=== PATIENT | male | born 1980 | race Caucasian/White ===

== ENCOUNTER → 2016-11-07 | Outpatient (CLI) | payer OTHER ==
[~2016-11-07] MED LIST: /DULO30CA; NEUR600T; TRAZ50TA
--- NOTE | 2016-11-07 19:19 | REP ---
Clinical: Acute cough. Technique: PA and lateral views. Findings: Diffuse coarsened interstitial markings may reflect bronchitis, chronic reactive airway disease, or viral pneumonia. No focal consolidation, effusion, or pneumothorax. Mediastinum and cardiac silhouette normal. Skeletal structures intact. Impression: Diffusely coarsened markings. Differential diagnosis includes bronchitis, viral pneumonia, and chronic reactive airway disease. No focal consolidation. Signed by Henry Miller MD 11/07/2016 07:09 P
== END ==
LOC: M LRY 18:10
PROVIDERS: ATTEND Nurse Practitioner Family
DX: R05 Cough (principal)

== ENCOUNTER → 2016-11-27 | Outpatient (CLI) | payer OTHER ==
[2016-11-27 17:44] LABS: ALBUMIN 3.5 GM/DL (3.2-5.2); ALBUMIN/GLOBULIN RATIO 1.17 (1.00-1.93); ALKALINE PHOSPHATASE 96 U/L (45-117); ALT/SGPT 50 U/L (12-78); ANION GAP 9 MEQ/L (8-16); AST/SGOT 27 U/L (15-37); BILIRUBIN,TOTAL 0.3 MG/DL (0.2-1.0); BLOOD UREA NITROGEN 10 MG/DL (7-18); CALCIUM LEVEL 8.9 MG/DL (8.5-10.1); CARBON DIOXIDE LEVEL 27 MEQ/L (21-32); CHLORIDE LEVEL 108 MEQ/L (98-107); CREATININE FOR GFR 0.87 MG/DL (0.70-1.30); FERRITIN 291 NG/ML (26-388); GLOMERULAR FILTRATION RATE > 60.0 (>60); GLUCOSE, FASTING 105 MG/DL (70-105); PHOSPHORUS LEVEL 2.9 MG/DL (2.5-4.9); POTASSIUM SERUM 4.1 MEQ/L (3.5-5.1); SODIUM LEVEL 144 MEQ/L (136-145); TOTAL PROTEIN 6.5 GM/DL (6.4-8.2)
[2016-11-27 18:32] LABS: BASO % 0.5 % (0.0-1.0); EOS # 0.1 K/mm3 (0.0-0.50); EOS % 0.8 % (0.0-3.0); LYMPH % 30.9 % (24.0-44.0); MEAN CORPUSCULAR HEMOGLOBIN 30.1 pg (27.0-33.0); MEAN CORPUSCULAR HGB CONC 32.6 g/dl (32.0-36.5); MEAN CORPUSCULAR VOLUME 92.6 fl (80.0-96.0); MONO # 0.6 K/mm3 (0.0-0.8); MONO % 6.5 % (0.0-5.0); NEUTROPHILS # 5.8 K/mm3 (1.8-7.7); NEUTROPHILS % 59.4 % (36.0-66.0); RED CELL DISTRIBUTION WIDTH 12.3 % (11.5-14.5); WHITE BLOOD COUNT 9.7 K/mm3 (4.0-10.0)
== END ==
LOC: M WUC 15:08
PROVIDERS: ATTEND Physician Assistant Medical
DX: R53.83 Other fatigue (principal)

== ENCOUNTER → 2016-12-30 | Outpatient (CLI) | payer OTHER ==
--- NOTE | 2016-12-31 07:32 | REP ---
MRI RIGHT SHOULDER: TECHNIQUE: Axial T2 fat sat, gradient echo, sagittal oblique T2 fat sat, coronal oblique T1, T2 fat sat. There is mild increased signal in the supraspinatus tendon which is ill-defined compatible with tendinopathy/tendinitis. No rotator cuff tear is seen. There are moderate hypertrophic degenerative changes of the acromioclavicular joint with subchondral marrow edema in the distal end of the clavicle and in the acromion. Acromion is curved in shape. Biceps tendon is within the bicipital groove with no tenosynovitis. There is no Hill-Sachs deformity. Deltoid muscle demonstrates no abnormal signal. Biceps labral complex appears intact. No definite labral tear is seen. Bone marrow signal is otherwise unremarkable. There is no joint effusion. There is no paralabral cyst. IMPRESSION: Moderate hypertrophic degenerative changes acromioclavicular joint with subchondral marrow edema on both sides of the joint. Curved shape of the acromion. Mild supraspinatus tendinopathy/tendinitis. No evidence of rotator cuff tear or labral tear. Signed by Alonso Menon MD 12/31/2016 01:53 P
== END ==
LOC: M RAD 09:44
PROVIDERS: ATTEND Physician Assistant Medical
DX: M65.811 Other synovitis and tenosynovitis, right shoulder (principal); M19.011 Primary osteoarthritis, right shoulder

== ENCOUNTER → 2017-04-03 | Outpatient (REF) | payer OTHER | LOC: M LAB REF 14:10 | PROVIDERS: ATTEND Surgery | DX: L72.0 Epidermal cyst (principal) ==

== ENCOUNTER → 2017-05-08 | Outpatient (REF) | payer OTHER ==
[2017-05-08 14:44] LABS: IMMMOTILE SPERM CENTRIFUGED PRESENT (ABSENT); IMMOTILE SPERM ABSENT (ABSENT); MOTILE SPERM ABSENT (ABSENT); MOTILE SPERM CENTRIFUGED ABSENT (ABSENT)
== END ==
LOC: M SMT 14:00
PROVIDERS: ATTEND Urology
DX: Z30.2 Encounter for sterilization (principal)

== ENCOUNTER → 2017-06-26 | Outpatient (CLI) | payer OTHER ==
[2017-06-26 13:33] LABS: BASO % 0.4 % (0.0-1.0); EOS # 0.1 K/mm3 (0.0-0.50); EOS % 0.9 % (0.0-3.0); LARGE UNSTAINED CELL # 0.1 K/mm3 (0.0-0.4); LARGE UNSTAINED CELL % 1.5 % (0.0-4.0); LYMPH # 2.6 K/mm3 (1.5-4.5); LYMPH % 31.3 % (24.0-44.0); MEAN CORPUSCULAR HEMOGLOBIN 31.5 pg (27.0-33.0); MEAN CORPUSCULAR HGB CONC 33.8 g/dl (32.0-36.5); MEAN CORPUSCULAR VOLUME 93.1 fl (80.0-96.0); MONO # 0.6 K/mm3 (0.0-0.8); MONO % 7.5 % (0.0-5.0); NEUTROPHILS # 4.6 K/mm3 (1.8-7.7); NEUTROPHILS % 58.4 % (36.0-66.0); PLATELET COUNT, AUTOMATED 325 k/mm3 (150-450); RED CELL DISTRIBUTION WIDTH 12.8 % (11.5-14.5); WHITE BLOOD COUNT 7.9 K/mm3 (4.0-10.0)
[2017-06-26 13:52] LABS: ALBUMIN 3.6 GM/DL (3.2-5.2); ALBUMIN/GLOBULIN RATIO 1.16 (1.00-1.93); ALKALINE PHOSPHATASE 96 U/L (45-117); ALT/SGPT 48 U/L (12-78); ANION GAP 7 MEQ/L (8-16); AST/SGOT 24 U/L (15-37); BILIRUBIN,TOTAL 0.6 MG/DL (0.2-1.0); BLOOD UREA NITROGEN 13 MG/DL (7-18); CALCIUM LEVEL 9.2 MG/DL (8.5-10.1); CARBON DIOXIDE LEVEL 29 MEQ/L (21-32); CHLORIDE LEVEL 108 MEQ/L (98-107); CHOLESTEROL LEVEL 174 MG/DL (<200); CREATININE FOR GFR 0.93 MG/DL (0.70-1.30); GLOMERULAR FILTRATION RATE > 60.0 (>60); GLUCOSE, FASTING 96 MG/DL (70-105); POTASSIUM SERUM 4.7 MEQ/L (3.5-5.1); SODIUM LEVEL 144 MEQ/L (136-145); TOTAL PROTEIN 6.7 GM/DL (6.4-8.2); TRIGLYCERIDES LEVEL 137 MG/DL (<150)
== END ==
LOC: M WUC 09:59
PROVIDERS: ATTEND Physician Assistant Medical
DX: E78.2 Mixed hyperlipidemia (principal); E55.9 Vitamin D deficiency, unspecified

== ENCOUNTER → 2017-07-19 | Outpatient (CLI) | payer OTHER ==
[2017-07-19 15:12] LABS: ALBUMIN 3.3 GM/DL (3.2-5.2); ALBUMIN/GLOBULIN RATIO 1.06 (1.00-1.93); ALKALINE PHOSPHATASE 91 U/L (45-117); ALT/SGPT 37 U/L (12-78); ANION GAP 5 MEQ/L (8-16); AST/SGOT 19 U/L (15-37); BILIRUBIN,TOTAL 0.3 MG/DL (0.2-1.0); BLOOD UREA NITROGEN 13 MG/DL (7-18); CALCIUM LEVEL 8.4 MG/DL (8.5-10.1); CARBON DIOXIDE LEVEL 30 MEQ/L (21-32); CHLORIDE LEVEL 106 MEQ/L (98-107); CREATININE FOR GFR 1.08 MG/DL (0.70-1.30); GLOMERULAR FILTRATION RATE > 60.0 (>60); GLUCOSE, FASTING 181 MG/DL (70-105); POTASSIUM SERUM 3.9 MEQ/L (3.5-5.1); SODIUM LEVEL 141 MEQ/L (136-145); TOTAL PROTEIN 6.4 GM/DL (6.4-8.2)
[2017-07-19 15:20] LABS: VITAMIN B12 LEVEL 511 PG/ML
[2017-07-19 15:21] LABS: FOLATE 11.1 NG/ML
[2017-07-19 16:15] LABS: BASO % 0.3 % (0.0-1.0); EOS % 0.7 % (0.0-3.0); LARGE UNSTAINED CELL # 0.1 K/mm3 (0.0-0.4); LARGE UNSTAINED CELL % 1.1 % (0.0-4.0); LYMPH # 1.2 K/mm3 (1.5-4.5); LYMPH % 15.6 % (24.0-44.0); MEAN CORPUSCULAR HEMOGLOBIN 31.8 pg (27.0-33.0); MEAN CORPUSCULAR HGB CONC 33.6 g/dl (32.0-36.5); MEAN CORPUSCULAR VOLUME 94.7 fl (80.0-96.0); MONO # 0.4 K/mm3 (0.0-0.8); MONO % 5.6 % (0.0-5.0); NEUTROPHILS # 5.6 K/mm3 (1.8-7.7); NEUTROPHILS % 76.7 % (36.0-66.0); PLATELET COUNT, AUTOMATED 339 k/mm3 (150-450); RED CELL DISTRIBUTION WIDTH 12.5 % (11.5-14.5); WHITE BLOOD COUNT 7.3 K/mm3 (4.0-10.0)
[2017-07-19 17:08] LABS: ERYTHROCYTE SEDIMENTATION RATE 15 mm/hr (0-15)
[2017-07-21 00:06] LABS: Lyme Disease IgG/IgM Antibodie <0.91 ISR (0.00-0.90); Lyme Disease IgM Ab Quantitati <0.80 index (0.00-0.79)
[2017-07-24 12:30] LABS: ALBUMIN 3.55 GM/DL (3.29-5.55); ALBUMIN % 55.4 % (55.8-66.1); GAMMA GLOBULIN % 14.6 % (11.1-18.8)
[2017-07-25 00:06] LABS: SJOGREN'S ANTI SS-A <0.2 AI (0.0-0.9); SJOGREN'S ANTI SS-B <0.2 AI (0.0-0.9); VITAMIN E LEVEL 4.9 mg/L (5.3-17.5)
== END ==
LOC: M WUC 09:25
PROVIDERS: ATTEND Psychiatry & Neurology Neurology
DX: G62.9 Polyneuropathy, unspecified (principal)

== ENCOUNTER 2019-06-23 09:40 | Emergency (ER) | payer OTHER ==
[~2019-06-23] VITALS: Ht 182.9 cm; Wt 109.1 kg
[~2019-06-23 09:40] MED LIST changes: -/DULO30CA; +CYMB1CAP5
[2019-06-23] MEDS ORDERED: DOXY100C37 PO (10:29)
[2019-06-23] MEDS ORDERED: ADACEL/BOOSTRIX VACCINE (DIPHTH/PERTUSS/ACELL/TETANUS)0.5ML SYR (90715) IM ONE (10:30)
[2019-06-23 11:10] VITALS: BP 137/84
== END 2019-06-23 11:27 | disposition home or self-care (01) ==
LOC: M ED 09:40
DX: S61.012A Laceration without foreign body of left thumb without damage to nail, initial encounter (principal); W26.9XXA Contact with unspecified sharp object(s), initial encounter; Y92.89 Other specified places as the place of occurrence of the external cause; Y93.89 Activity, other specified; Y99.0 Civilian activity done for income or pay; Z72.0 Tobacco use; Z88.5 Allergy status to narcotic agent

== ENCOUNTER → 2020-01-12 | Outpatient (CLI) | payer OTHER ==
[~2020-01-12] MED LIST changes: +DOXY100C37 PO
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
== END ==
LOC: M PAIN 10:00
PROVIDERS: ATTEND Family Medicine
DX: M50.10 Cervical disc disorder with radiculopathy, unspecified cervical region (principal); F17.210 Nicotine dependence, cigarettes, uncomplicated; Z88.5 Allergy status to narcotic agent; G47.30 Sleep apnea, unspecified; Z79.899 Other long term (current) drug therapy

== ENCOUNTER → 2020-01-15 | Outpatient (CLI) | payer OTHER, SELFPAY ==
--- NOTE | 2020-01-15 18:55 | REP ---
RIGHT ANKLE, FOUR VIEWS: There is no evidence of an acute fracture, dislocation or intrinsic bone disease. IMPRESSION: No fracture or dislocation. Electronically Signed by Alonso Menon MD 01/15/2020 06:59 P
== END ==
LOC: M LRY 17:42
PROVIDERS: ATTEND Physician Assistant
DX: S99.911A Unspecified injury of right ankle, initial encounter (principal); X58.XXXA Exposure to other specified factors, initial encounter; Y92.89 Other specified places as the place of occurrence of the external cause; Y93.9 Activity, unspecified; Y99.9 Unspecified external cause status

== ENCOUNTER 2021-07-02 21:27 | Inpatient (IN) | payer OTHER ==
[~2021-07-02] VITALS: Ht 182.9 cm; Wt 124.7 kg
[~2021-07-02 21:27] MED LIST changes: -DOXY100C37 PO; +DOXY1CAP62 PO
[2021-07-03 00:11] LABS: BASO % 0.3 % (0.0-1.0); EOS # 0.1 10^3/uL (0.0-0.5); EOS % 0.8 % (0.0-3.0); HEMATOCRIT 41.8 % (42.0-52.0); HEMOGLOBIN 13.5 g/dl (13.5-17.5); LYMPH # 2.3 10^3/uL (1.5-5.0); LYMPH % 19.6 % (24.0-44.0); MEAN CORPUSCULAR HGB CONC 32.3 g/dl (32.0-36.5); MEAN CORPUSCULAR VOLUME 96.1 fl (80.0-96.0); MONO # 1.5 10^3/uL (0.0-0.8); MONO % 12.5 % (2.0-8.0); NEUTROPHILS # 7.6 10^3/uL (1.5-8.5); NEUTROPHILS % 65.8 % (36.0-66.0); PLATELET COUNT, AUTOMATED 309 10^3/uL (150-450); RED BLOOD COUNT 4.35 10^6/uL (4.30-6.10)
[2021-07-03 00:12] LABS: ALBUMIN 3.2 GM/DL (3.2-5.2); ALT/SGPT 45 U/L (12-78); BILIRUBIN,DIRECT 0.1 MG/DL (0.0-0.2); BILIRUBIN,TOTAL 0.5 MG/DL (0.2-1.0); BLOOD UREA NITROGEN 13 MG/DL (7-18); CALCIUM LEVEL 8.6 MG/DL (8.5-10.1); CARBON DIOXIDE LEVEL 29 MEQ/L (21-32); CHLORIDE LEVEL 109 MEQ/L (98-107); CREATININE FOR GFR 0.96 MG/DL (0.70-1.30); GLOMERULAR FILTRATION RATE > 60.0 (>60); GLUCOSE, FASTING 119 MG/DL (70-100); LIPASE 81 U/L (73-393); SODIUM LEVEL 142 MEQ/L (136-145); TOTAL PROTEIN 6.7 GM/DL (6.4-8.2)
[2021-07-03 00:15] LABS: WHITE BLOOD COUNT 11.6 10^3/uL (4.0-10.0)
[2021-07-03] MEDS ORDERED: KETOROLAC 30 MG/ML 1ML VIAL IV ONE (00:15)
[2021-07-03] MEDS ORDERED: ONDANSETRON 4MG/2ML VIAL IV ONE (00:15)
[2021-07-03] MEDS ORDERED: ISOVUE-370 76% 100ML VIAL As Ordered ONE (00:19)
[2021-07-03] MEDS ORDERED: NS 1,000 ML IV ONE (00:20)
--- NOTE | 2021-07-03 01:40 | REPVR ---
PROCEDURE INFORMATION: Exam: CT Abdomen And Pelvis With Contrast Exam date and time: 07/03/2021 12:55 AM Age: 41 years old Clinical indication: Other: Llq pain TECHNIQUE: Imaging protocol: Computed tomography of the abdomen and pelvis with contrast. Radiation optimization: All CT scans at this facility use at least one of these dose optimization techniques: automated exposure control; mA and/or kV adjustment per patient size (includes targeted exams where dose is matched to clinical indication); or iterative reconstruction. Contrast material: ISOVUE 370; Contrast volume: 100 ml; Contrast route: INTRAVENOUS (IV); COMPARISON: No relevant prior studies available. FINDINGS: LUNG BASES: No infiltrate or effusion. VASCULAR: Major vasculature is within normal limits. GI: No hiatal hernia. A few distal periesophageal lymph nodes are noted up to 9 mm in diameter of uncertain significance. Clinical follow-up with gastroenterology is advised. No periesophageal inflammatory changes are seen. The stomach is slightly distended with ingested material and gas. The stomach is not sufficiently distended to evaluate wall thickening or for complete diagnostic evaluation. There are multiple gastrohepatic ligament lymph nodes which measure up to 10 mm in short axis. The significance of this is uncertain. Comparison with prior studies if available or follow up would be helpful. No appearance of bowel obstruction. Slightly prominent mesenteric lymph nodes are noted but not obviously pathologic by size criteria. Scattered fecal material and gas within portions of the colon and rectum. The appendix does not appear inflamed. There is focal moderately severe pericolonic inflammatory stranding at the distal descending colon in the left lower quadrant with associated colonic wall thickening, adjacent fascial thickening and fluid. There is a background of diverticulosis and a few indistinct thick-walled appearing posterior diverticula are noted at the site of inflammation, findings consistent with acute diverticulitis. There are a few tiny bubbles of gas which appear to be extraluminal adjacent to the inflamed diverticulum suggesting a micro perforation. No free air is seen otherwise throughout the peritoneal cavity. No drainable abscess collection is seen. Follow-up with colonoscopy or fluoroscopic evaluation is advised, to exclude any possibility of an underlying colonic lesion, once acute inflammatory change subsides. HEPATOBILIARY, PANCREAS, SPLEEN: Hepatic length is 18.9 cm. Attenuation of the liver is consistent with severe steatosis. Partially contracted gallbladder. No calcified gallstones. Thickened appearance of the gallbladder wall may be artifactual. No pancreatic inflammation. Spleen not enlarged. ADRENALS, KIDNEYS, BLADDER, RETROPERITONEAL: Adrenals within normal limits. No hydronephrosis. Symmetric renal enhancement. No perivesical stranding. No bladder wall thickening. Slight heterogeneity of the prostate. Prostate calcifications are noted. MUSCULOSKELETAL: Fat containing inguinal hernias, right larger than left. Degenerative disc disease of the lumbar spine. IMPRESSION: Findings are consistent with acute diverticulitis. There is a suspected micro perforation. Findings and recommendations discussed above in detail. Other nonemergent findings discussed above. Electronically signed by: Dwain Rivera On 07/03/2021 01:40:16 AM
[2021-07-03 02:53] LABS: RSV AMPLIFICATION NEGATIVE (NEGATIVE)
[2021-07-03] MEDS ORDERED: metroNIDAZOLE 500 MG in IV 1 EA IV ONE (03:20)
[2021-07-03] MEDS ORDERED: CIPROFLOXACIN 400 MG in IV 1 EA IV ONE (03:20)
[2021-07-03] MEDS ORDERED: HOME MED LIST COMPLETE! XX SCH (03:50)
[2021-07-03] MEDS ORDERED: ACETAMINOPHEN TAB 650MG DOSE (2X325MG) PO PRN (04:15)
--- NOTE | 2021-07-03 04:37 | HPEPDOC ---
General Date of Admission July 03, 2021 Date of Service: Jul 03, 2021 Chief Complaint The patient is a 41-year-old male admitted with a reason for visit of Diverticulitis. History of Present Illness Mr. Gama is a 41-year-old male who is here with abdominal pain. About 4 days ago during work, he started to have abdominal pain. He tells me that his work is very physical. His abdominal pain gradually got worse and worse. It is a sharp pain in the left lower quadrant. Food does not make it better or worse. He notes that it is tender when he puts pressure on his abdomen. Patient never had a colonoscopy. Denies any recent trauma, travel, or sick contacts. He started to have fever and chills at home. He came into the ED for evaluation. While here, he has been afebrile, but he has leukocytosis. Physical exam is positive for tenderness in the left lower quadrant. Otherwise, he appears very comfortable and not in distress. CT of the abdomen pelvis with IV contrast only demonstrates acute diverticulitis and suspected microperforation. Patient will be admitted for acute diverticulitis Home Medications No Active Prescriptions or Reported Meds Allergies Coded Allergies: morphine (Verified Allergy, Severe, ANYPHYLACTIC, 06/23/19) Past Medical History Medical History 1. Right shoulder issues Surgical History 1. Right inguinal hernia repair 2. Strangulated hernia 9 years ago 3. Vasectomy Family History Father: History of cancer and sleep apnea Mother: Does not know her medical history Social History * Smoker: current smoker Alcohol: occationally Drugs: denies A-FIB/CHADSVASC A-FIB History Current/History of A-Fib/PAF?: No Review of Systems Constitutional: Reports: Chills, Fever Eyes: Denies: Vision change ENT: Denies: Sore Throat Skin: Denies: Rash Pulmonary: Reports: Cough (Dry); Denies: Dyspnea Cardiovascular: Denies: Chest Pain Gastrointestinal: Reports: Abdominal Pain (Left lower quadrant); Denies: Diarrhea, Constipation Genitourinary: Denies: Dysuria Hematologic: Denies: Bruising Neurological: Denies: Numbness Psych: Denies: Anxiety, Depression Physical Examination General Exam: Positive: Alert, Cooperative Eye Exam: Positive: EOMI; Negative: Sclera icteric ENT Exam: Positive: Atraumatic Neck Exam: Positive: Supple Chest Exam: Positive: Clear to auscultation; Negative: Rales, Rhonchi, Wheezing Heart Exam: Positive: Rate Normal, Regular Rhythm Abdomen Exam: Positive: Normal bowel sounds, Soft, Tenderness Extremity Exam: Negative: Edema Neuro Exam: Positive: Normal Speech, Cranial Nerves 3-12 NL Psych Exam: Positive: Mental status NL, Mood NL Vital Signs Vital Signs Date Time Temp Pulse Resp B/P (MAP) Pulse Ox O2 Delivery O2 Flow Rate FiO2 07/03/21 03:45 84 16 115/62 (79) 96 Room Air 07/02/21 21:29 98.3 Laboratory Data Labs 24H Laboratory Tests 2 07/02/21 23:31: Immature Granulocyte % (Auto) 1.0, Neutrophils (%) (Auto) 65.8, Lymphocytes (%) (Auto) 19.6L, Monocytes (%) (Auto) 12.5H, Eosinophils (%) (Auto) 0.8, Basophils (%) (Auto) 0.3, Neutrophils # (Auto) 7.6, Lymphocytes # (Auto) 2.3, Monocytes # (Auto) 1.5H, Eosinophils # (Auto) 0.1, Basophils # (Auto) 0.0, Nucleated Red Blood Cells % (auto) 0.0, Anion Gap 4L, Glomerular Filtration Rate > 60.0, Calcium Level 8.6, Total Bilirubin 0.5, Direct Bilirubin 0.1, Aspartate Amino Transf (AST/SGOT) 18, Alanine Aminotransferase (ALT/SGPT) 45, Alkaline Phosphatase 91, Total Protein 6.7, Albumin 3.2, Albumin/Globulin Ratio 0.9, Lipase 81 07/02/21 23:32: Lactic Acid Level 1.1 07/03/21 02:00: Coronavirus (COVID-19)(PCR) NEGATIVE, Influenza Type A (RT-PCR) NEGATIVE, Infl uenza Type B (RT-PCR) NEGATIVE, Respiratory Syncytial Virus (PCR) NEGATIVE CBC/BMP Laboratory Tests 07/02/21 23:31 Assessment/Plan Mr. Gama is a 41-year-old male who is here with abdominal pain secondary to acute diverticulitis. We will start patient on IV antibiotics and put patient on a low residue diet. Patient may benefit from outpatient colonoscopy once inflammation resolves. Interestingly, patient tells me that he has family members that also have diverticulitis. Plan / VTE VTE Prophylaxis Ordered?: Yes Plan Plan 1. Acute diverticulitis Seen on CT of the abdomen pelvis IV metronidazole and IV ciprofloxacin day 0 Low residue diet Of note, CT has suspicion for microperforation, but patient appears very comfortable. Monitor at this time. 2. Tobacco use disorder Patient is a current smoker Offered nicotine patch, patient declined 3. Obesity and steatosis BMI 34.4 CT abdomen pelvis demonstrates steatosis, but AST and ALT are within normal limits Patient may benefit from diet and exercise 4. DVT prophylaxis SCDs and tedJJ Jimenez. DO Jul 03, 2021 04:37
[2021-07-03 05:26] VITALS: BP 132/83
[2021-07-03 06:31] LABS: HEMATOCRIT 39.7 % (42.0-52.0); HEMOGLOBIN 12.7 g/dl (13.5-17.5); MEAN CORPUSCULAR HEMOGLOBIN 30.9 pg (27.0-33.0); MEAN CORPUSCULAR VOLUME 96.6 fl (80.0-96.0); PLATELET COUNT, AUTOMATED 277 10^3/uL (150-450); RED BLOOD COUNT 4.11 10^6/uL (4.30-6.10); WHITE BLOOD COUNT 9.9 10^3/uL (4.0-10.0)
[2021-07-03 06:41] LABS: INR 1.03; PROTHROMBIN TIME 13.9 SECONDS (12.7-14.5)
[2021-07-03 06:42] LABS: PARTIAL THROMBOPLASTIN TIME 40.2 SECONDS (25.9-37.0)
[2021-07-03 06:51] LABS: BLOOD UREA NITROGEN 14 MG/DL (7-18); CALCIUM LEVEL 8.3 MG/DL (8.5-10.1); CARBON DIOXIDE LEVEL 25 MEQ/L (21-32); CHLORIDE LEVEL 111 MEQ/L (98-107); GLOMERULAR FILTRATION RATE > 60.0 (>60); GLUCOSE, FASTING 107 MG/DL (70-100); SODIUM LEVEL 141 MEQ/L (136-145)
--- NOTE | 2021-07-03 09:30 | IPNPDOC ---
Subjective Date Seen The patient was seen on 07/03/21. Subjective Chief Complaint/HPI Patient was seen and examined at bedside this morning. He is presented to emergency department with complaints of abdominal pain, nausea, and vomiting. 3 to 4 days prior to admission he was also experiencing fever and chills. CT scan noted evidence for acute diverticulitis. Upon entering the room, he was laying on his but left lateral side and reported lying on his back aggravates his left lower quadrant pain. He did reports mild to moderate improvement in the pain since hospitalization. He has been tolerating his diet without aggravating the pain, nausea, and vomiting. He Other systems 10 point review of system was negative except for what is noted in the HPI Objective Physical Examination Other physical findings General: Lying in bed, no acute distress Head/Neck/Throat: Trachea midline, mucous membranes moist Eyes: Sclera anicteric, no erythema or discharge appreciated bilaterally Thorax: Normal respiratory effort on room air, lungs clear to auscultation bilaterally, no wheezes/rales/rhonchi Cardiovascular: Normal rate, regular rhythm, normal S1, S2; no S3, S4, rubs/gallops/murmurs Abdomen: bowel sounds are present, soft, nondistended, tenderness reported with palpation in the left lower quadrant, no rebound tenderness Genitourinary: No CVA tenderness, no Munoz in place Musculoskeletal: Moving all extremities, no edema Skin: Warm, dry Neurologic: AAOx3, speech fluent and goal-directed, no focal deficits, grossly intact Assessment /Plan Assessment #Acute diverticulitis -Continue with ciprofloxacin and Flagyl. -We will hold off on advancing diet further today -We will get in touch with surgery for microperforations that were noted, but this is likely just his diverticulum -Did not have a colonoscopy in the past. Will need a colonoscopy in 6 to 8 weeks, he was made aware of this. #Tobacco use -Refused nicotine patch. #steatosis Noted on CT scan of the abdomen. AST/ALT within normal limits. He will need lifestyle modifications including diet and exercise. He will need to be followed up with his primary care physician for appropriate monitoring. #DVT prophylax -Enoxaparin Plan/VTE VTE Prophylaxis Ordered?: Yes VS, I&O, 24H, Fishbone Vital Signs/I&O Vital Signs Date Time Temp Pulse Resp B/P (MAP) Pulse Ox O2 Delivery O2 Flow Rate FiO2 9/5/21 05:26 97.4 85 16 132/83 (99) 98 Room Air I&O- Last 24 Hours up to 6 AM 07/03/21 06:00 Intake Total 0 ml Balance 0 ml Laboratory Data 24H LABS Laboratory Tests 2 07/02/21 23:31: Immature Granulocyte % (Auto) 1.0, Neutrophils (%) (Auto) 65.8, Lymphocytes (%) (Auto) 19.6L, Monocytes (%) (Auto) 12.5H, Eosinophils (%) (Auto) 0.8, Basophils (%) (Auto) 0.3, Neutrophils # (Auto) 7.6, Lymphocytes # (Auto) 2.3, Monocytes # (Auto) 1.5H, Eosinophils # (Auto) 0.1, Basophils # (Auto) 0.0, Nucleated Red Blood Cells % (auto) 0.0, Anion Gap 4L, Glomerular Filtration Rate > 60.0, Calcium Level 8.6, Total Bilirubin 0.5, Direct Bilirubin 0.1, Aspartate Amino Transf (AST/SGOT) 18, Alanine Aminotransferase (ALT/SGPT) 45, Alkaline Phosphatase 91, Total Protein 6.7, Albumin 3.2, Albumin/Globulin Ratio 0.9, Lipase 81 07/02/21 23:32: Lactic Acid Level 1.1 07/03/21 02:00: Coronavirus (COVID-19)(PCR) NEGATIVE, Influenza Type A (RT-PCR) NEGATIVE, Influenza Type B (RT-PCR) NEGATIVE, Respiratory Syncytial Virus (PCR) NEGATIVE 07/03/21 05:52: Nucleated Red Blood Cells % (auto) 0.0, Anion Gap 5L, Glomerular Filtration Rate > 60.0, Calcium Level 8.3L, Prothrombin Time 13.9, Prothromb Time International Ratio 1.03, Activated Partial Thromboplast Time 40.2H, C-Reactive Protein, Quantitative 11.70H CBC/BMP Laboratory Tests 07/02/21 23:31 07/03/21 05:52 RADHA NICOLAS M.D. Jul 03, 2021 09:30
[2021-07-03] MEDS: ENOXAPARIN 40MG/0.4ML SYRINGE (J1650 PER 10MG) SC SCH (10:47)
[2021-07-03] MEDS ORDERED: KETOROLAC 30 MG/ML 1ML VIAL IV PRN (13:30)
[2021-07-03] MEDS: metroNIDAZOLE 500 MG in IV 1 EA IV SCH ×2 (13:52→21:25)
[2021-07-03 14:00] VITALS: BP 105/69
[2021-07-03] MEDS: CIPROFLOXACIN 400 MG in IV 1 EA IV SCH (15:07)
[2021-07-03 22:00] VITALS: BP 128/57
[2021-07-04] MEDS: CIPROFLOXACIN 400 MG in IV 1 EA IV SCH (04:02)
[2021-07-04] MEDS: metroNIDAZOLE 500 MG in IV 1 EA IV SCH (05:20)
[2021-07-04 06:00] VITALS: BP 131/62
[2021-07-04 06:38] LABS: HEMATOCRIT 40.8 % (42.0-52.0); MEAN CORPUSCULAR HEMOGLOBIN 30.9 pg (27.0-33.0); MEAN CORPUSCULAR HGB CONC 31.9 g/dl (32.0-36.5); MEAN CORPUSCULAR VOLUME 96.9 fl (80.0-96.0); PLATELET COUNT, AUTOMATED 292 10^3/uL (150-450); RED BLOOD COUNT 4.21 10^6/uL (4.30-6.10); WHITE BLOOD COUNT 7.5 10^3/uL (4.0-10.0)
[2021-07-04 07:08] LABS: BLOOD UREA NITROGEN 13 MG/DL (7-18); CALCIUM LEVEL 8.2 MG/DL (8.5-10.1); CARBON DIOXIDE LEVEL 26 MEQ/L (21-32); CHLORIDE LEVEL 112 MEQ/L (98-107); CREATININE FOR GFR 0.81 MG/DL (0.70-1.30); GLOMERULAR FILTRATION RATE > 60.0 (>60); GLUCOSE, FASTING 113 MG/DL (70-100); PHOSPHORUS LEVEL 2.5 MG/DL (2.5-4.9); POTASSIUM SERUM 4.3 MEQ/L (3.5-5.1); SODIUM LEVEL 142 MEQ/L (136-145)
[2021-07-04] MEDS: ENOXAPARIN 40MG/0.4ML SYRINGE (J1650 PER 10MG) SC SCH (08:41)
[2021-07-04] MEDS ORDERED: CIPR500T39 PO (09:42)
[2021-07-04] MEDS ORDERED: FLAG500T PO (09:42)
--- NOTE | 2021-07-04 09:54 | DS.PDOC ---
Discharge Summary General Date of Admission Jul 02, 2021 at 21:28 Date of Discharge 07/04/21 Discharge Summary DISCHARGE DIAGNOSES: 1. Diverticulitis 2. Severe steatosis 3. Paraesophageal and multiple gastrohepatic ligament lymph nodes COMPLICATIONS/CHIEF COMPLAINT: Diverticulitis. HOSPITAL COURSE: 41-year-old male with a past medical history of strangulated hernia presented to the emergency department with abdominal pain. A CT scan of the abdomen and pelvis done in the emergency department noted for findings are consistent with acute diverticulitis and possible microperforation He was started on IV antibiotics including ciprofloxacin and Flagyl with significant improvement in his pain. At the time of discharge she was tolerating diet and there was improvement in his pain. He was evaluated by the surgical team in regards to the suspected microperforation, no acute intervention was required at the time. He is to follow-up with a mortgage loan counselor in 10 to 14 days and have a colonoscopy in 6 to 8 weeks. It should be noted that there was paraesophageal as well as multiple gastrohepa tic ligament lymph nodes that were appreciated on CT scan. He needs to follow- up with a mortgage loan counselor for further evaluation. He was also noted to have severe steatosis. He needs to follow-up with his primary care physician for ongoing monitoring and is encouraged to have lifestyle modification changes including weight loss and change in diet. Patient is aware of these findings. He was encouraged to obtain a copy of his CT scan findings for his reference Patient was also asked to follow-up with primary care physician for further evaluation of his anemia DISCHARGE MEDICATIONS: Please see below. ALLERGIES: Please see below. PHYSICAL EXAMINATION ON DISCHARGE: General: Lying in bed, no acute distress Head/Neck/Throat: Trachea midline, mucous membranes moist Eyes: Sclera anicteric, PERRLA Thorax: Normal respiratory effort on room air, lungs clear to auscultation bilaterally, no wheezes/rales/rhonchi Cardiovascular: Normal rate, regular rhythm, normal S1, S2; no S3, S4, rubs/ gallops/murmurs Abdomen: Bowel sounds present, soft/nontender/nondistended Genitourinary: No CVA tenderness, no Munoz in place Musculoskeletal: Moving all extremities, no edema Skin: Warm, dry Neurologic: AAOx3, speech fluent and goal-directed, no focal deficits, grossly intact LABORATORY DATA: Please see below. IMAGING: CT scan Abdomen pelvis with contrast FINDINGS: LUNG BASES: No infiltrate or effusion. VASCULAR: Major vasculature is within normal limits. GI: No hiatal hernia. A few distal periesophageal lymph nodes are noted up to 9 mm in diameter of uncertain significance. Clinical follow-up with gastroenterology is advised. No periesophageal inflammatory changes are seen. The stomach is slightly distended with ingested material and gas. The stomach is not sufficiently distended to evaluate wall thickening or for complete diagnostic evaluation. There are multiple gastrohepatic ligament lymph nodes which measure up to 10 mm in short axis. The significance of this is uncertain. Comparison with prior studies if available or follow up would be helpful. No appearance of bowel obstruction. Slightly prominent mesenteric lymph nodes are noted but not obviously pathologic by size criteria. Scattered fecal material and gas within portions of the colon and rectum. The appendix does not appear inflamed. There is focal moderately severe pericolonic inflammatory stranding at the distal descending colon in the left lower quadrant with associated colonic wall thickening, adjacent fascial thickening and fluid. There is a background of diverticulosis and a few indistinct thick-walled appearing posterior diverticula are noted at the site of inflammation, findings consistent with acute diverticulitis. There are a few tiny bubbles of gas which appear to be extraluminal adjacent to the inflamed diverticulum suggesting a micro perforation. No free air is seen otherwise throughout the peritoneal cavity. No drainable abscess collection is seen. Follow-up with colonoscopy or fluoroscopic evaluation is advised, to exclude any possibility of an underlying colonic lesion, once acute inflammatory change subsides. HEPATOBILIARY, PANCREAS, SPLEEN: Hepatic length is 18.9 cm. Attenuation of the liver is consistent with severe steatosis. Partially contracted gallbladder. No calcified gallstones. Thickened appearance of the gallbladder wall may be artifactual. No pancreatic inflammation. Spleen not enlarged. ADRENALS, KIDNEYS, BLADDER, RETROPERITONEAL: Adrenals within normal limits. No hydronephrosis. Symmetric renal enhancement. No perivesical stranding. No bladder wall thickening. Slight heterogeneity of the prostate. Prostate calcifications are noted. MUSCULOSKELETAL: Fat containing inguinal hernias, right larger than left. Degenerative disc disease of the lumbar spine. DISCHARGE CONDITION: [Stable]. TIME SPENT ON DISCHARGE: 32 minutes. Vital Signs/I&Os Vital Signs Date Time Temp Pulse Resp B/P (MAP) Pulse Ox O2 Delivery O2 Flow Rate FiO2 07/04/21 06:00 97.6 82 18 131/62 (85) 96 Room Air I&O- Last 24 Hours up to 6 AM 07/04/21 06:00 Intake Total 2980 ml Output Total 800 ml Balance 2180 ml Laboratory Data Labs 24H Laboratory Tests 2 07/04/21 06:12: Nucleated Red Blood Cells % (auto) 0.0, Anion Gap 4L, Glomerular Filtration Rate > 60.0, Calcium Level 8.2L, Phosphorus Level 2.5, Magnesium Level 2.0 CBC/BMP Laboratory Tests 07/04/21 06:12 Discharge Medications Scheduled Ciprofloxacin HCl (Ciprofloxacin HCl) 500 Mg Tablet, 500 MG PO BID Metronidazole (Flagyl) 500 Mg Tablet, 500 MG PO Q8H FOR 10 DAYS Allergies Coded Allergies: morphine (Verified Allergy, Severe, ANYPHYLACTIC, 06/23/19) RADHA NICOLAS M.D. Jul 04, 2021 09:45
== END 2021-07-04 11:02 | disposition home or self-care (01) | DRG 244 ==
LOC: M ED 21:27 → M ED INP 21:28 → M MSPAV 07-03 05:26
PROVIDERS: ADMIT Internal Medicine; ATTEND Internal Medicine
DX: K57.92 Diverticulitis of intestine, part unspecified, without perforation or abscess without bleeding (principal); E88.89 Other specified metabolic disorders; I89.0 Lymphedema, not elsewhere classified; Z88.5 Allergy status to narcotic agent; F17.200 Nicotine dependence, unspecified, uncomplicated; E66.9 Obesity, unspecified; Z68.34 Body mass index [BMI] 34.0-34.9, adult

== ENCOUNTER → 2021-09-18 | Outpatient (REF) | payer OTHER ==
[~2021-09-18] MED LIST changes: +CIPR500T39 PO; +DOXY-443 PO; -DOXY1CAP62 PO; +FLAG500T PO
== END ==
LOC: M LAB REF 13:39
PROVIDERS: ATTEND Physician Assistant Medical
DX: R50.9 Fever, unspecified (principal); R05.9 Cough, unspecified

== ENCOUNTER 2021-09-20 10:02 | Emergency (ER) | payer OTHER ==
[~2021-09-20] VITALS: Ht 182.9 cm; Wt 119.2 kg
[2021-09-20 10:03] VITALS: BP 147/85
[2021-09-20 12:12] VITALS: O2SAT 95
[2021-09-20] MEDS ORDERED: CYCLOBENZAPRINE 10MG TABLET PO ONE (12:25)
[2021-09-20] MEDS ORDERED: KETOROLAC 60MG 2ML VIAL IM ONE (12:25)
[2021-09-20] MEDS ORDERED: NAPR-837 PO (14:05)
[2021-09-20] MEDS ORDERED: CYCL5TAB PO (14:05)
== END 2021-09-20 14:51 | disposition home or self-care (01) ==
LOC: M ED 10:02
DX: M62.830 Muscle spasm of back (principal); U07.1 COVID-19; Z87.442 Personal history of urinary calculi; Z87.19 Personal history of other diseases of the digestive system; Z88.6 Allergy status to analgesic agent; Z91.030 Bee allergy status
CPT/HCPCS: 96372; 99283; J1885

== ENCOUNTER → 2022-01-11 | Outpatient (CLI) | payer OTHER ==
[~2022-01-11] MED LIST changes: +CYCL5TAB PO; +NAPR-837 PO
== END ==
LOC: M LABSMTC 10:38
PROVIDERS: ATTEND Anesthesiology
DX: Z01.812 Encounter for preprocedural laboratory examination (principal); Z20.822 Contact with and (suspected) exposure to COVID-19

== ENCOUNTER 2022-01-16 10:55 | Day surgery (SDC) | payer OTHER ==
[~2022-01-16] VITALS: Ht 182.9 cm; Wt 123.4 kg
[~2022-01-16 10:55] MED LIST changes: +LIDOCAINE 2% 100MG/5ML SDV (FOR ANES.) As Ordered ONE; +NS 1,000 ML IV ONE; +propofoL 200 MG/20 ML VIAL As Ordered ONE
[2022-01-16] MEDS ORDERED: fentaNYL 100 MCG/2 ML INJECTION As Ordered ONE (12:50)
[2022-01-16] MEDS ORDERED: propofoL 200 MG/20 ML VIAL As Ordered ONE (13:06)
[2022-01-16 14:06] VITALS: BP 138/68
== END 2022-01-16 14:06 | disposition home or self-care (01) ==
LOC: M OPP 10:55
PROVIDERS: ATTEND Internal Medicine Gastroenterology
DX: D12.6 Benign neoplasm of colon, unspecified (principal); Z12.11 Encounter for screening for malignant neoplasm of colon; K64.8 Other hemorrhoids; K57.30 Diverticulosis of large intestine without perforation or abscess without bleeding; K21.00 Gastro-esophageal reflux disease with esophagitis, without bleeding; K22.89 Other specified disease of esophagus; K29.70 Gastritis, unspecified, without bleeding; R93.3 Abnormal findings on diagnostic imaging of other parts of digestive tract; G47.33 Obstructive sleep apnea (adult) (pediatric); Z88.5 Allergy status to narcotic agent; Z87.891 Personal history of nicotine dependence
CPT/HCPCS: 43239; 45385; 88305; J3010

== ENCOUNTER → 2023-01-22 | Outpatient (REF) | payer OTHER ==
[~2023-01-22] MED LIST changes: -LIDOCAINE 2% 100MG/5ML SDV (FOR ANES.) As Ordered ONE; -NS 1,000 ML IV ONE; -propofoL 200 MG/20 ML VIAL As Ordered ONE
== END ==
LOC: M LAB REF 16:12
PROVIDERS: ATTEND Physician Assistant Medical
DX: J02.9 Acute pharyngitis, unspecified (principal)

== ENCOUNTER → 2023-04-15 | Outpatient (REF) | payer OTHER | LOC: M LAB REF 17:03 | PROVIDERS: ATTEND Physician Assistant Medical | DX: B34.9 Viral infection, unspecified (principal) ==

== ENCOUNTER → 2024-11-10 | Outpatient (CLI) | payer OTHER ==
[~2024-11-10] MED LIST changes: -CYCL5TAB PO; +CYCL5TAB4 PO; +DOXY-441 PO; -DOXY-443 PO
== END ==
LOC: M OUTALCOH 07:29
PROVIDERS: ATTEND Psychiatry & Neurology Psychiatry
DX: F10.20 Alcohol dependence, uncomplicated (principal)

== ENCOUNTER 2024-11-25 15:26 | Outpatient (RCR) | payer OTHER | END 2024-11-28 | LOC: M OUTALCOH 15:26 | PROVIDERS: ATTEND Psychiatry & Neurology Psychiatry | DX: F10.20 Alcohol dependence, uncomplicated (principal) ==

== ENCOUNTER 2024-12-23 08:37 | Outpatient (RCR) | payer OTHER | END 2024-12-26 | LOC: M OUTALCOH 08:37 | PROVIDERS: ATTEND Psychiatry & Neurology Psychiatry | DX: F10.20 Alcohol dependence, uncomplicated (principal) ==

== ENCOUNTER 2025-01-20 08:43 | Outpatient (RCR) | payer OTHER | END 2025-01-26 | LOC: M OUTALCOH 08:43 | PROVIDERS: ATTEND Psychiatry & Neurology Psychiatry | DX: F10.20 Alcohol dependence, uncomplicated (principal) ==

== ENCOUNTER 2025-02-16 09:43 | Outpatient (RCR) | payer OTHER | END 2025-02-25 | LOC: M OUTALCOH 09:43 | PROVIDERS: ATTEND Psychiatry & Neurology Psychiatry | DX: F10.20 Alcohol dependence, uncomplicated (principal) ==

== ENCOUNTER → 2025-05-21 | Outpatient (CLI) | payer OTHER | LOC: M WHC 14:22 | PROVIDERS: ATTEND Registered Nurse | DX: R94.5 Abnormal results of liver function studies (principal); Z53.9 Procedure and treatment not carried out, unspecified reason ==

== ENCOUNTER → 2025-06-25 | Outpatient (CLI) | payer OTHER | LOC: M RAD 08:05 | PROVIDERS: ATTEND Registered Nurse | DX: R94.5 Abnormal results of liver function studies (principal); K76.0 Fatty (change of) liver, not elsewhere classified; R16.0 Hepatomegaly, not elsewhere classified ==

== ENCOUNTER 2025-08-22 18:40 | Emergency (ER) | payer OTHER ==
[~2025-08-22] VITALS: Ht 182.9 cm; Wt 113.3 kg
[2025-08-22 18:43] VITALS: TEMP 98.9
[2025-08-22 19:32] LABS: BASO # 0.0 10^3/uL (0.0-0.2); BASO % 0.3 % (0.0-1.0); EOS # 0.1 10^3/uL (0.0-0.5); EOS % 1.2 % (0.0-3.0); LYMPH # 3.3 10^3/uL (1.5-5.0); LYMPH % 28.6 % (24.0-44.0); MONO # 1.0 10^3/uL (0.0-0.8); MONO % 8.8 % (2.0-8.0); NEUTROPHILS # 7.1 10^3/uL (1.5-8.5); NEUTROPHILS % 60.6 % (36.0-66.0); PLATELET COUNT, AUTOMATED 322 10^3/uL (150-450)
[2025-08-22] MEDS ORDERED: ISOVUE-370 76% 100 ML VIAL As Ordered ONE (19:43)
[2025-08-22 19:57] LABS: ALT/SGPT 56.0 U/L (7.0-40); AST/SGOT 37.0 U/L (<34)
[2025-08-22 20:38] LABS: KETONE, URINE AUTO RFX NEGATIVE (NEGATIVE); LEUKOCYTE ESTERASE UR AUTO RFX NEGATIVE (NEGATIVE); NITRITE, URINE AUTO RFX NEGATIVE (NEGATIVE); RBC, URINE AUTO RFX 2 /HPF (0-3); SQUAM EPITHELIAL CELL UR AURFX 0 /HPF (0-6); WBC, URINE AUTO RFX 0 /HPF (0-3)
[2025-08-22 21:30] VITALS: BP 135/82; O2SAT 96
[2025-08-22] MEDS ORDERED: METR-265 PO (21:35)
[2025-08-22] MEDS ORDERED: CIPR-249 PO (21:35)
[2025-08-22] MEDS: CIPROFLOXACIN 500 MG TABLET PO ONE (21:35)
== END 2025-08-22 21:43 | disposition home or self-care (01) ==
LOC: M ED 18:40
DX: K57.32 Diverticulitis of large intestine without perforation or abscess without bleeding (principal); N28.1 Cyst of kidney, acquired; Z91.030 Bee allergy status; Z88.5 Allergy status to narcotic agent; Z79.2 Long term (current) use of antibiotics; Z79.899 Other long term (current) drug therapy
CPT/HCPCS: 36415; 74177; 80047; 80076; 81001; 83605; 83690; 85025; 96365; 96376; 99284; Q9967